=== PATIENT | male | born 1955 | race Caucasian/White ===

== ENCOUNTER 2018-01-25 10:22 | Day surgery (SDC) | payer BC ==
[~2018-01-25 10:22] MED LIST: Lactated Ringers 1,000 ML IV SCH; Sodium Chloride 0.9% 10 ML Syringe FLUSH PRN
[2018-01-25] MEDS ORDERED: fentaNYL 100 MCG/2 ML SDV ONE ×2 (11:47→11:58)
[2018-01-25] MEDS ORDERED: Propofol 200 MG/20 ML SDV ONE ×2 (11:48→11:58)
[2018-01-25] MEDS ORDERED: Midazolam 1 MG/ML 2 ML SDV ONE ×2 (11:48→11:58)
--- NOTE | 2018-01-25 12:07 | PCM.PN ---
- General Info Date of Service: 01/25/18 - Review of Systems Systems Review Comment:: 62-year-old male referred for colonoscopy. It is been approximately 7 years since his last colonoscopy. He has a family history of colon cancer in his mother. He is medically stable to proceed today with no recent significant change in his health status. I discussed the proposed colonoscopy with the patient. Risks such as but not limited to bleeding and GI injury reviewed. He appears to understand and agrees to proceed. - Patient Data Vitals - Most Recent: Last Vital Signs Temp 97.6 F 01/25/18 10:47 Pulse 64 01/25/18 10:47 Resp 20 01/25/18 10:47 BP 130/88 01/25/18 10:47 Pulse Ox 99 01/25/18 10:47 Weight - Most Recent: 77.111 kg Med Orders - Current: Current Medications Lactated Ringer's (Ringers, Lactated) 1,000 mls @ 125 mls/hr IV ASDIRECTED AMANDA Last Admin: 01/25/18 11:08 Dose: 125 mls/hr Sodium Chloride (Saline Flush) 10 ml FLUSH ASDIRECTED PRN PRN Reason: Keep Vein Open Discontinued Medications Fentanyl (Sublimaze) Confirm Administered Dose 100 mcg .ROUTE .STK-MED ONE Stop: 01/25/18 11:48 Midazolam HCl (Versed 1 Mg/Ml) Confirm Administered Dose 2 mg .ROUTE .STK-MED ONE Stop: 01/25/18 11:49 Propofol (Diprivan 20 Ml) Confirm Administered Dose 400 mg .ROUTE .STK-MED ONE Stop: 01/25/18 11:49 - Problem List Review Problem List Initiated/Reviewed/Updated: Yes - Assessment Assessment:: family history of colon cancer - Plan Plan:: colonoscopy
--- NOTE | 2018-01-25 12:42 | PCM.OPNOTE ---
- General Post-Op/Procedure Note Date of Surgery/Procedure: 01/25/18 Operative Procedure(s): colonoscopy Findings: normal-appearing colon Pre Op Diagnosis: family history of colon cancer Post-Op Diagnosis: normal colon Anesthesia Technique: MAC Primary Surgeon: Domingo Dos Santos Pathology: none Output, Urine Amount: 0 EBL in mLs: 0 Complications: None Condition: Good Free Text/Narrative:: Intake & Output 01/24/18 01/25/18 01/25/18 22:59 06:59 14:59 Intake Total 900 Balance 900
--- NOTE | 2018-01-26 08:54 | OR ---
Date of Procedure: 01/25/2018 PREOPERATIVE DIAGNOSIS: Family history of colon cancer. POSTOPERATIVE DIAGNOSIS: Normal colon. OPERATIONS PERFORMED: Colonoscopy. INDICATIONS FOR SURGERY: This 62-year-old male has a family history of colon cancer in his mother. It has been approximately 7 years since his last colonoscopy. He comes for screening exam. FINDINGS: No polyps were seen on today's exam. The patient's colon appeared normal. DESCRIPTION OF PROCEDURE: The patient was taken to the operating room. He was given intravenous sedation, and with him in the left lateral decubitus position, digital rectal exam was performed showing no rectal masses. The Olympus colonoscope was inserted into the rectum. Retroflexed examination of the rectal canal was performed. The scope was then carefully advanced under direct visualization through the entire length of the colon until the cecum was reached. Cecal acquisition was confirmed by noting the normal internal cecal anatomy including the appendiceal orifice and ileocecal valve and the light was also noted to transilluminate the abdominal wall in the right lower quadrant. After examining the cecum, the scope was slowly withdrawn, sequentially re- examining the colonic segments until the entire colon and rectum had been fully examined. The scope was removed and the patient was then taken from the operating room in satisfactory condition. ESTIMATED BLOOD LOSS: Zero. COMPLICATIONS: None. PROGNOSIS: Good. JOAQUÍN Dos Santos MD /[id number]
== END 2018-01-25 13:40 | disposition home or self-care (01) ==
LOC: LL.SDS 10:22
PROVIDERS: ATTEND Surgery
DX: Z12.11 Encounter for screening for malignant neoplasm of colon (principal); I10 Essential (primary) hypertension; E78.5 Hyperlipidemia, unspecified; N52.9 Male erectile dysfunction, unspecified; Z79.899 Other long term (current) drug therapy; Z88.8 Allergy status to other drugs, medicaments and biological substances; Z80.0 Family history of malignant neoplasm of digestive organs
CPT/HCPCS: J2250; J2704; J3010; J7120

== ENCOUNTER 2023-12-21 10:27 | Day surgery (SDC) | payer MEDICARE ==
[~2023-12-21 10:27] MED LIST changes: -Lactated Ringers 1,000 ML IV SCH; +Midazolam 1 MG/ML 2 ML SDV ONE; +Propofol 200 MG/20 ML SDV ONE; -Sodium Chloride 0.9% 10 ML Syringe FLUSH PRN
[2023-12-21] MEDS ORDERED: Sodium Chloride 0.9% 10 ML Syringe FLUSH PRN (10:30)
[2023-12-21] MEDS: Lactated Ringers 1,000 ML IV SCH (10:48)
== END 2023-12-21 13:20 | disposition home or self-care (01) ==
LOC: LL.SDS 10:27
PROVIDERS: ATTEND Surgery
DX: Z12.11 Encounter for screening for malignant neoplasm of colon (principal); K57.30 Diverticulosis of large intestine without perforation or abscess without bleeding; I10 Essential (primary) hypertension; J06.9 Acute upper respiratory infection, unspecified; Z80.0 Family history of malignant neoplasm of digestive organs; Z86.010 Personal history of colon polyps; Z87.891 Personal history of nicotine dependence; Z79.899 Other long term (current) drug therapy; Z88.2 Allergy status to sulfonamides
CPT/HCPCS: J2250; J2704; J7120